=== PATIENT | male | born 1955 | race African-American/Black ===

== ENCOUNTER → 2020-08-04 | Outpatient (CLI) | payer OTHER | LOC: SJCVCIMAG 07-11 09:22 | PROVIDERS: ATTEND Internal Medicine | DX: I11.9 Hypertensive heart disease without heart failure (principal); R93.1 Abnormal findings on diagnostic imaging of heart and coronary circulation; R60.0 Localized edema; E11.9 Type 2 diabetes mellitus without complications; J32.9 Chronic sinusitis, unspecified; R55 Syncope and collapse; I25.10 Atherosclerotic heart disease of native coronary artery without angina pectoris; E78.5 Hyperlipidemia, unspecified; G47.33 Obstructive sleep apnea (adult) (pediatric); Z79.82 Long term (current) use of aspirin; Z79.4 Long term (current) use of insulin; Z79.899 Other long term (current) drug therapy ==

== ENCOUNTER 2021-02-24 12:55 | Emergency (ER) | payer OTHER ==
[~2021-02-24] VITALS: Ht 152.4 cm; Wt 83.0 kg
[2021-02-24 16:40] VITALS: BP 143/85
== END 2021-02-24 16:40 | disposition home or self-care (01) ==
LOC: ER 12:55
DX: R51.9 Headache, unspecified (principal); E11.9 Type 2 diabetes mellitus without complications; I10 Essential (primary) hypertension; E78.00 Pure hypercholesterolemia, unspecified; M19.90 Unspecified osteoarthritis, unspecified site; M81.0 Age-related osteoporosis without current pathological fracture

== ENCOUNTER 2021-06-13 14:25 | Inpatient (IN) | payer OTHER ==
[~2021-06-13] VITALS: Ht 152.4 cm; Wt 86.2 kg
[2021-06-13 14:47] VITALS: BP 122/64
[2021-06-13 16:04] LABS: ABSOLUTE NEUTROPHILS 5.7 thou/uL (1.4-8.2); BASOPHILS 0.3 % (0.0-2.0); EOSINOPHILS 0.1 % (0.0-3.0); HEMATOCRIT 38.7 % (37.0-47.0); HEMOGLOBIN 12.8 gm/dL (12.0-15.0); LYMPHOCYTES 10.6 % (24.0-44.0); MCH 30.7 pg (26.0-34.0); MCHC 33.1 g/dL (28.0-37.0); MONOCYTES 6.9 % (1.0-8.0); PLATELET COUNT 422 thou/uL (150-400); POLYS 82.1 % (36.0-66.0); RBC 4.17 mil/uL (4.20-5.00); RDW 13.5 % (10.5-14.5); WBC 6.9 thou/uL (4.0-11.0)
[2021-06-13 16:08] LABS: CALCIUM 9.6 mg/dL (8.5-10.1); CREATININE 1.4 mg/dL (0.6-1.0); POTASSIUM 4.4 mmol/L (3.5-5.1)
[2021-06-13 16:19] LABS: ALBUMIN 2.9 g/dL (3.4-5.0); MAGNESIUM 1.9 mg/dL (1.8-2.4); TOTAL BILIRUBIN 0.8 mg/dL (0.2-1.0); TOTAL PROTEIN 8.3 g/dL (6.4-8.2)
[2021-06-13] MEDS ORDERED: LIPITOR 40 MG T40 M1 PO (20:58)
[2021-06-13] MEDS ORDERED: NEBIVOLOL HCL20 MG PO (20:59)
[2021-06-13] MEDS ORDERED: VALACYCLOVIR500 MG PO (21:00)
[2021-06-13] MEDS ORDERED: ANORO ELLIPTA1 EACH INH (21:00)
[2021-06-13] MEDS ORDERED: METFORMIN HCL500 M1 PO (21:00)
[2021-06-13] MEDS ORDERED: ALLOPURINOL 30300 M1 PO (21:00)
[2021-06-13] MEDS ORDERED: TRULICITY4.5 MG/0.5 SUBQ (21:01)
[2021-06-13] MEDS ORDERED: PROAIR HFA8.5 GM INH (21:01)
[2021-06-13] MEDS ORDERED: HYDRALAZINE 10M10 MG PO (21:02)
[2021-06-13] MEDS ORDERED: VITAMIN B-1100 M2 PO (21:02)
[2021-06-13] MEDS ORDERED: FOLIC ACID1 MG PO (21:02)
[2021-06-13] MEDS ORDERED: FARXIGA10 MG PO (21:02)
[2021-06-13] MEDS ORDERED: ALENDRONATE SOD70 MG PO (21:02)
[2021-06-13] MEDS ORDERED: NIFEDIPINE ER90 M1 PO (21:02)
[2021-06-13] MEDS ORDERED: ERYTHROMYCIN E3.5 G2 EA. EYE (21:03)
[2021-06-14 08:18] LABS: CALCIUM 8.9 mg/dL (8.5-10.1); CREATININE 1.1 mg/dL (0.6-1.0); POTASSIUM 4.2 mmol/L (3.5-5.1)
[2021-06-14 08:24] LABS: ALBUMIN 2.2 g/dL (3.4-5.0); DIRECT BILIRUBIN 0.1 mg/dL (<0.1-0.2); PHOSPHORUS 4.2 mg/dL (2.5-4.9); TOTAL BILIRUBIN 0.5 mg/dL (0.2-1.0); TOTAL PROTEIN 7.1 g/dL (6.4-8.2)
[2021-06-14 18:37] VITALS: BP 149/89
[2021-06-14 20:00] VITALS: BP 139/77
[2021-06-15] VITALS: BP 132/70
[2021-06-15 04:00] VITALS: BP 133/77
[2021-06-15 08:16] VITALS: BP 139/72
--- NOTE | 2021-06-15 08:22 | NUR ---
UNABLE TO PULL PATIENT MEDICATIONS AT THIS TIME. PHARMACY AWARE.
[2021-06-15 08:33] LABS: ALBUMIN 2.2 g/dL (3.4-5.0); CALCIUM 8.5 mg/dL (8.5-10.1); DIRECT BILIRUBIN 0.2 mg/dL (<0.1-0.2); PHOSPHORUS 3.6 mg/dL (2.5-4.9); TOTAL BILIRUBIN 0.4 mg/dL (0.2-1.0)
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
[2021-06-15 20:00] VITALS: BP 157/75
[2021-06-16] VITALS: BP 161/89
[2021-06-16 04:00] VITALS: BP 165/90
[2021-06-16 06:37] LABS: HEMATOCRIT 33.5 % (37.0-47.0); HEMOGLOBIN 11.6 gm/dL (12.0-15.0); MCH 31.7 pg (26.0-34.0); MCHC 34.5 g/dL (28.0-37.0); MCV 91.9 fL (80.0-100.0); RBC 3.65 mil/uL (4.20-5.00); RDW 13.5 % (10.5-14.5); WBC 6.1 thou/uL (4.0-11.0)
[2021-06-16 07:01] LABS: ALBUMIN 2.2 g/dL (3.4-5.0); ANION GAP 13 mmol/L (7-16); BUN 15 mg/dL (7-18); CALCIUM 8.8 mg/dL (8.5-10.1); CHLORIDE 108 mmol/L (98-107); CO2 19 mmol/L (21-32); DIRECT BILIRUBIN < 0.1 mg/dL (<0.1-0.2); GLUCOSE 99 mg/dL (74-106); PHOSPHORUS 3.5 mg/dL (2.5-4.9); POTASSIUM 3.8 mmol/L (3.5-5.1); SGOT 29 U/L (15-37); SGPT 51 U/L (30-65); SODIUM 140 mmol/L (136-145); TOTAL BILIRUBIN 0.3 mg/dL (0.2-1.0); TOTAL PROTEIN 6.6 g/dL (6.4-8.2)
[2021-06-16 08:00] VITALS: BP 176/86
[2021-06-16 16:00] VITALS: BP 140/78
[2021-06-16 19:25] VITALS: BP 149/83
[2021-06-17 03:46] VITALS: BP 136/88
[2021-06-17 05:02] LABS: HEMOGLOBIN 12.1 gm/dL (12.0-15.0); MCH 30.9 pg (26.0-34.0); MCHC 33.6 g/dL (28.0-37.0); MCV 91.9 fL (80.0-100.0); RBC 3.92 mil/uL (4.20-5.00); RDW 13.3 % (10.5-14.5); WBC 7.3 thou/uL (4.0-11.0)
[2021-06-17 05:19] LABS: CALCIUM 9.4 mg/dL (8.5-10.1); CREATININE 1.1 mg/dL (0.6-1.0); POTASSIUM 4.1 mmol/L (3.5-5.1)
--- NOTE | 2021-06-17 06:43 | NUR ---
ASSUMED CARE AT 1900, PT LAYING COMFORTABLY IN BED, REPORTS NO PAIN OR DISCOFORT, COMPLIANT OF TX, NO ADVERSE REACTION NOTED, SLEPT THROUGH THE NIGHT, TOILETED NEEDED, CALL LIGHT AND BELONGS WITHIN REACH, WILL CONTINUE TO MONITOR.
[2021-06-17 08:00] VITALS: BP 150/86
[2021-06-17 11:17] VITALS: BP 126/80
[2021-06-17 15:33] VITALS: BP 142/82
[2021-06-17 18:39] VITALS: BP 150/85
[2021-06-18 04:21] VITALS: BP 162/91
[2021-06-18 05:33] VITALS: BP 133/82
--- NOTE | 2021-06-18 07:25 | NUR ---
Up in the recliner chair till around 2300 , got herself cleaned up then went to bed. She stated she slept well though she woke up with a headache. Tylenol given with some relief. Cont. on enhanced precaution , afebrile. Maintaining O2 sat > 90% on 1 L/NC. No respiratory distress. Elevated BP this am 162/91 then rechecked after she got situated and got 133/82. Making some progress towards care plan goals.
[2021-06-18 11:05] VITALS: BP 151/97
[2021-06-18 15:01] VITALS: BP 135/80
[2021-06-18 15:25] VITALS: BP 135/80
[2021-06-18 20:04] VITALS: BP 135/67
--- NOTE | 2021-06-18 23:16 | NUR ---
PT PROGRESSING TOWARDS D/C GOALS. VSS AFEBRILE. BS 302. NOTIFIED Niki TYLER BS 302 WITH [place] [employer] AT HS. SLIDING SCALE CHANGED ORDERED TO AC& HS. HS SNACK PROVIDED PER PT REQUEST. NO S/S DISTRESS ON RA PRESENTLY.
[2021-06-19 03:56] VITALS: BP 136/77
--- NOTE | 2021-06-19 05:10 | NUR ---
PT RESTING . DENIED SOA OR PAIN. AMBULATES TO BR WITH STEADY GAIT. REFUSED WALKER. VSS. AFEBRILE. SATS WNL ON RA. PROGRESSING TOWARDS D/C GOALS.
[2021-06-19 05:36] LABS: BASOPHILS 0.6 % (0.0-2.0); EOSINOPHILS 0.4 % (0.0-3.0); HEMATOCRIT 35.8 % (37.0-47.0); HEMOGLOBIN 11.9 gm/dL (12.0-15.0); LYMPHOCYTES 22.5 % (24.0-44.0); MCH 30.6 pg (26.0-34.0); MCHC 33.2 g/dL (28.0-37.0); MCV 92.1 fL (80.0-100.0); MONOCYTES 6.8 % (1.0-8.0); PLATELET COUNT 552 thou/uL (150-400); POLYS 69.7 % (36.0-66.0); RBC 3.88 mil/uL (4.20-5.00); RDW 13.5 % (10.5-14.5); WBC 8.6 thou/uL (4.0-11.0)
[2021-06-19 05:59] LABS: CREATININE 1.1 mg/dL (0.6-1.0); POTASSIUM 3.7 mmol/L (3.5-5.1)
[2021-06-19 07:18] VITALS: BP 156/95
[2021-06-19 10:04] VITALS: BP 135/80
[2021-06-19 11:08] VITALS: BP 154/86
[2021-06-19 11:15] VITALS: BP 135/80
--- NOTE | 2021-06-19 12:42 | NUR ---
INITIAL ASSESSMENT/DISCHARGE NOTE: SW reviewed chart and spoke with nursing and attending physician. Pt was admitted from home due to COVID. Pt place in Enhanced Isolation. Pt has not received a COVID vaccination. Pt is afebrile and on room air. Pt has completed course of Remdesivir and is medically stable for discharge home today. SW placed several calls to pt's room. No answer. Per chart, pt lives at home with her family. Prior to admission, pt was independent with ADLs. There are 5 steps to enter their home and 15 steps inside. Pt's PCP is listed as Dr. Alana Patel. No discharge needs identified at this time. Pt's family to provide transportation home when discharged. SW is available to assist should needs arise.
[2021-06-19] MEDS ORDERED: PREDNISONE 10 M10 M1 PO (14:43)
[2021-06-19 16:25] VITALS: BP 135/80
== END 2021-06-19 17:54 | disposition home or self-care (01) | DRG 177 ==
LOC: ER 14:25 → 3W 18:49 → EROBS 18:49 → 3W 06-16 18:19
PROVIDERS: Nurse Practitioner; Nurse Practitioner Family; ADMIT Hospitalist; ATTEND Hospitalist
PROC: XW033E5 Introduction of Remdesivir Anti-infective into Peripheral Vein, Percutaneous Approach, New Technology Group 5 (ICD-10-PCS; principal; 2021-06-13)
PROC: 5A0935A Assistance with Respiratory Ventilation, Less than 24 Consecutive Hours, High Flow/Velocity Cannula (ICD-10-PCS; 2021-06-14)
DX: U07.1 COVID-19 (principal); J12.82 Pneumonia due to coronavirus disease 2019; J96.01 Acute respiratory failure with hypoxia; I26.99 Other pulmonary embolism without acute cor pulmonale; N17.9 Acute kidney failure, unspecified; E44.0 Moderate protein-calorie malnutrition; E78.00 Pure hypercholesterolemia, unspecified; M19.90 Unspecified osteoarthritis, unspecified site; M81.0 Age-related osteoporosis without current pathological fracture; E78.5 Hyperlipidemia, unspecified; G43.909 Migraine, unspecified, not intractable, without status migrainosus; N18.9 Chronic kidney disease, unspecified; I12.9 Hypertensive chronic kidney disease with stage 1 through stage 4 chronic kidney disease, or unspecified chronic kidney disease; E11.22 Type 2 diabetes mellitus with diabetic chronic kidney disease; E66.9 Obesity, unspecified; Z68.37 Body mass index [BMI] 37.0-37.9, adult; Z79.899 Other long term (current) drug therapy
CPT/HCPCS: 10879